=== PATIENT | male | born 1945 | race Caucasian/White ===

== ENCOUNTER 2020-07-21 17:58 | Emergency (ER) | payer MEDICARE, BC ==
[2020-07-21 20:32] LABS: #Monocytes 0.5 10x3/uL (0.0-1.1); #Neutrophils 9.6 10x3/uL (1.5-8.4); %Basophils 0.3 % (0.0-2.0); %Eosinophils 0.2 % (0.0-6.0); %Lymphocytes 11.2 % (18.0-47.0); %Monocytes 4.1 % (0.0-10.0); %Neutrophils 83.8 % (40.0-75.0); Hemoglobin 11.6 g/dL (13.5-17.5); Mean Corpuscular Hemoglobin 29.8 pg (27.0-33.0); Mean Corpuscular Volume 93.1 fl (81.2-95.1); Mean Platelet Volume 10.8 fl (7.4-10.4); Platelet Count 393 10x3/uL (150-450); RBC Distribution Width 13.1 % (11.5-14.5); Red Blood Cell (RBC) Count 3.89 10x6/uL (4.32-5.72); White Blood Cell (WBC) Count 11.5 10x3/uL (3.5-10.5)
[2020-07-21 20:43] LABS: ALT (SGPT) 7 U/L (8-55); AST (SGOT) 23 U/L (5-34); Albumin 4.2 g/dL (3.4-4.8); Alkaline Phosphatase 88 U/L (40-110); Anion Gap 12 mmol/L (10-20); BUN (Urea Nitrogen) 16 mg/dL (8.4-25.7); Calc. Creatinine Clearance 0 mL/min (70-130); Calcium 9.8 mg/dL (7.8-10.44); Carbon Dioxide 29 mmol/L (23-31); Chloride 99 mmol/L (98-107); Globulin 2.8 g/dL (2.4-3.5); Glucose 95 mg/dL (83-110); Lipase 30 U/L (8-78); Potassium 3.9 mmol/L (3.5-5.1); Sodium 136 mmol/L (136-145)
[2020-07-21 21:23] LABS: Bilirubin Neg (Negative); Blood, Urine 25 (Negative); Clarity Clear (Clear); Glucose, Urine (Dipstick) Normal (Negative); Ketone, Urine 5 mg/dL (Negative); Leukocyte Negative (Negative); Nitrite Negative (Negative); Protein, Urine (Dipstick) Negative (Neg-Trace); Urobilinogen Normal mg/dL (Less than 2)
[2020-07-21 21:33] LABS: Troponin I 0.014 ng/mL (< 0.028)
[2020-07-21 21:35] LABS: Squamous Epithelial 0-3 HPF (0-3); WBC/HPF 0-3 HPF (0-3)
[2020-07-21 21:36] LABS: Mucous/LPF 4+ LPF (<2+); Yeast-Budding Rare HPF (None Seen)
== END 2020-07-21 23:30 | disposition home or self-care (01) ==
LOC: CSHERS 17:58
DX: M25.511 Pain in right shoulder (principal); M25.551 Pain in right hip; Z91.81 History of falling; E11.9 Type 2 diabetes mellitus without complications; E03.9 Hypothyroidism, unspecified; E78.00 Pure hypercholesterolemia, unspecified; E78.5 Hyperlipidemia, unspecified; G20 Parkinson's disease; I48.91 Unspecified atrial fibrillation; Z79.01 Long term (current) use of anticoagulants; W19.XXXA Unspecified fall, initial encounter
CPT/HCPCS: 51701; 70450; 71045; 72125; 80053; 81003; 81015; 83690; 84484; 85025; 93005